=== PATIENT | female | born 1935 | race Caucasian/White ===

== ENCOUNTER 2017-08-19 16:00 | Inpatient (IN) | payer MEDICARE ==
[~2017-08-19] VITALS: Ht 165.1 cm; Wt 65.6 kg
[2017-08-19 16:45] VITALS: BP 137/56
[2017-08-19 17:05] LABS: BASOPHILS % (AUTO) 0.8 % (0.0-5.0); EOSINOPHILS % (AUTO) 1.7 % (0.0-8.0); LYMPHOCYTES % (AUTO) 29.8 % (21.0-51.0); MEAN CORPUSCULAR HEMOGLOBIN 33.4 pg (27.0-33.0); MEAN CORPUSCULAR HGB CONC 33.6 g/dL (32.0-36.0); MEAN CORPUSCULAR VOLUME 99.5 fL (79-99); MONOCYTES % (AUTO) 10.4 % (3.0-13.0); NEUTROPHILS % (AUTO) 57.3 % (40.0-77.0); PLATELET COUNT (AUTO) 311 K/uL (130-400); RED BLOOD CELL COUNT(AUTO) 3.92 MIL/uL (4.00-5.50); WHITE BLOOD COUNT (AUTO) 6.7 K/uL (4.8-10.8)
[2017-08-19 17:14] LABS: INR 0.95 (0.85-1.15); PARTIAL THROMBOPLASTIN TIME 27.3 SEC (26.3-35.5)
[2017-08-19] MEDS ORDERED: LEVO125T95 PO (17:41)
[2017-08-19] MEDS ORDERED: VITA1CAP85 PO (17:41)
[2017-08-19] MEDS ORDERED: VITAMIN D 3 PO (17:41)
[2017-08-19 17:52] LABS: APPEARANCE,URINE Clear (CLEAR); BILIRUBIN,URINE Negative (NEGATIVE); COLOR,URINE Yellow (YELLOW); GLUCOSE, URINE (UA) Negative (NEGATIVE); KETONES,URINE Negative (NEGATIVE); LEUKOCYTE ESTERASE ,URINE Small (NEGATIVE); NITRATE,URINE Negative (NEGATIVE); OCCULT BLOOD,URINE Negative (NEGATIVE); PROTEIN,URINE Negative (NEGATIVE)
[2017-08-19 17:54] LABS: CREATININE 1.1 mg/dL (0.5-1.5); POTASSIUM 3.9 mmol/L (3.5-5.1)
[2017-08-19 18:21] LABS: BACTERIA,URINE Rare /HPF (None Seen); RBC,URINE 0-1 /HPF (0-1); SQUAMOUS EPITHELIAL CELL,UR Rare /HPF (0-2)
[2017-08-22] VITALS (22 sets, daily range): BP systolic 91–155; BP diastolic 45–81
[2017-08-22] MEDS: CEFAZOLIN SODIUM 1 GM VIAL IVP SCH ×3 (06:00→16:33)
[2017-08-22] MEDS ORDERED: GENTAMICIN SULFATE 240 MG in SODIUM CHLORIDE 0.9% 100 ML IV SCH (07:30)
[2017-08-22] MEDS ORDERED: LACTATED RINGERS 1000ML 1,000 ML IV ONE (08:24)
[2017-08-22] MEDS ORDERED: KETOROLAC TROMETHAMINE 15MG/ML ONE (08:25)
[2017-08-22] MEDS ORDERED: ACETAMINOPHEN EXTRA STRENGTH 500 MG TABLET ONE (08:25)
[2017-08-22] MEDS ORDERED: CELECOXIB 200 MG CAP ONE (08:25)
[2017-08-22] MEDS ORDERED: OXYCODONE HCL 10 MG TAB.SR.12H PO ONE (08:26)
[2017-08-22] MEDS ORDERED: BUPIVACAINE/EPI/PF 0.25% 30ML VIAL IJ ONE (08:27)
[2017-08-22] MEDS ORDERED: CEFAZOLIN SODIUM 1 GM VIAL ONE (08:27)
[2017-08-22] MEDS ORDERED: TRANEXAMIC ACID 1000MG/10ML IV ONE ×2 (08:27→11:48)
[2017-08-22] MEDS ORDERED: MIDAZOLAM HCL 1 MG/ML 2ML VIAL ONE (10:17)
[2017-08-22] MEDS ORDERED: LIDOCAINE PF 2% 5ML ABBOJECT ONE (10:17)
[2017-08-22] MEDS ORDERED: PROPOFOL 10 MG/ML 20ML VIAL IV ONE ×2 (10:17→12:19)
[2017-08-22] MEDS ORDERED: DEXAMETHASONE SOD PHOSPHATE 10MG/ML 1ML VIAL ONE (10:17)
[2017-08-22] MEDS ORDERED: GLYCOPYRROLATE 0.2 MG/ML 5 ML VIAL ONE (10:17)
[2017-08-22] MEDS ORDERED: FENTANYL CITRATE PF 50 MCG/1 ML 2ML VIAL ONE (10:18)
[2017-08-22] MEDS ORDERED: LIDOCAINE HCL-MPF 1% 2ML VIAL IVP PRN (12:15)
[2017-08-22] MEDS ORDERED: OXYCODONE HCL 5 MG TAB PO PRN (12:15)
[2017-08-22] MEDS ORDERED: ACETAMINOPHEN 325 MG TAB PO PRN (12:15)
[2017-08-22] MEDS ORDERED: FERROUS FUMARATE 324 MG TABLET PO PRN (12:15)
[2017-08-22] MEDS ORDERED: POTASSIUM CHLORIDE 10% ELIXIR 20 MEQ/15 ML UDCUP PO PRN (12:15)
[2017-08-22] MEDS ORDERED: ONDANSETRON HCL 4 MG/2 ML VIAL IVP PRN (12:15)
[2017-08-22] MEDS ORDERED: DiphenhydrAMINE HCL 50 MG/ML VIAL IVP PRN (12:15)
[2017-08-22] MEDS: SODIUM CHLORIDE 0.9% 1000ML 1,000 ML IV SCH ×2 (12:15→23:29)
[2017-08-22] MEDS ORDERED: POTASSIUM CHLORIDE 20 MEQ ERTAB PO PRN (12:15)
[2017-08-22] MEDS ORDERED: TRAMADOL HCL 50 MG TABLET PO PRN (12:15)
[2017-08-22] MEDS ORDERED: CALCIUM CARBONATE 500 MG TABLET PO PRN (12:15)
[2017-08-22] MEDS ORDERED: TEMAZEPAM 15 MG CAPSULE PO PRN (12:15)
[2017-08-22] MEDS ORDERED: POTASSIUM CHLORIDE 20MEQ/100ML 100 ML IV PRN (12:15)
[2017-08-22] MEDS ORDERED: MEPERIDINE-PF 25 MG/ML SYG ONE (13:04)
[2017-08-22] MEDS ORDERED: MORPHINE SULFATE 4 MG/1ML SYG ONE (13:08)
[2017-08-22 13:54] LABS: APPEARANCE BODY FLUID CLOUDY (CLEAR); BODY FLUID WBC 698 /cu. mm.; COLOR,BODY FLUID RED (LT YELLOW); SPECIMENTYPE,BODY FLUID SYNOVIAL; TOTAL VOLUME,BODY FLUID 5 mL
[2017-08-22 13:55] LABS: BODY FLUID RBC 15875 /cu. mm.
[2017-08-22 14:16] LABS: BF LYMPHOCYTE 76 %; BF MONOCYTE 1 %
[2017-08-22] MEDS: KETOROLAC TROMETHAMINE 15MG/ML IV PRN ×2 (15:49→21:57)
[2017-08-22] MEDS: OXYCODONE HCL 5 MG TAB PO PRN (16:39)
[2017-08-22] MEDS ORDERED: CEFAZOLIN 2GM / 50 ML 50 ML IV SCH (17:15)
[2017-08-22] MEDS: CELECOXIB 200 MG CAP PO SCH (19:53)
[2017-08-22] MEDS: PREGABALIN 25 MG CAP PO SCH (19:53)
[2017-08-22] MEDS: FAMOTIDINE 20MG TAB 20 MG TAB PO SCH (19:53)
[2017-08-22] MEDS: ASPIRIN 325 MG TABLET PO SCH (19:53)
[2017-08-22] MEDS: LEVOTHYROXINE 125 MCG TABLET PO SCH (19:53)
[2017-08-23 00:35] VITALS: BP 133/68
[2017-08-23] MEDS: CEFAZOLIN SODIUM 1 GM VIAL IVP SCH (00:41)
[2017-08-23] MEDS: OXYCODONE HCL 5 MG TAB PO PRN ×2 (03:51→08:51)
[2017-08-23 04:31] VITALS: BP 141/67
[2017-08-23 05:31] LABS: HEMATOCRIT 32.8 % (36-48); MEAN CORPUSCULAR HEMOGLOBIN 33.9 pg (27.0-33.0); MEAN CORPUSCULAR HGB CONC 34.1 g/dL (32.0-36.0); MEAN CORPUSCULAR VOLUME 99.5 fL (79-99); PLATELET COUNT (AUTO) 248 K/uL (130-400); WHITE BLOOD COUNT (AUTO) 6.7 K/uL (4.8-10.8)
[2017-08-23 05:36] LABS: CREATININE 0.8 mg/dL (0.5-1.5); POTASSIUM 4.3 mmol/L (3.5-5.1)
[2017-08-23] MEDS: KETOROLAC TROMETHAMINE 15MG/ML IV PRN ×2 (07:05→17:41)
[2017-08-23 07:38] VITALS: BP 141/67
[2017-08-23] MEDS: SODIUM CHLORIDE 0.9% 1000ML 1,000 ML IV SCH (08:15)
[2017-08-23] MEDS: POLYETHYLENE GLYCOL 3350 17 GM POWD.PACK PO SCH (08:50)
[2017-08-23] MEDS: FAMOTIDINE 20MG TAB 20 MG TAB PO SCH ×2 (08:51→19:44)
[2017-08-23] MEDS: CELECOXIB 200 MG CAP PO SCH ×2 (08:51→19:43)
[2017-08-23] MEDS: VITAMIN B COMPLEX 1 CAPSULE PO SCH (08:51)
[2017-08-23] MEDS: ASPIRIN 325 MG TABLET PO SCH ×2 (08:51→19:43)
[2017-08-23] MEDS: PREGABALIN 25 MG CAP PO SCH ×2 (08:51→19:44)
[2017-08-23 10:51] VITALS: BP 124/64
[2017-08-23 16:32] VITALS: BP 145/65
[2017-08-23] MEDS ORDERED: ASPI-1012 PO (18:05)
[2017-08-23] MEDS ORDERED: HYDR-309 PO (18:05)
[2017-08-23 19:00] VITALS: BP 116/62
[2017-08-23] MEDS: LEVOTHYROXINE 125 MCG TABLET PO SCH (19:44)
[2017-08-23] MEDS: ACETAMINOPHEN EXTRA STRENGTH 500 MG TABLET PO PRN ×2 (19:44→20:58)
[2017-08-23] MEDS: ACETAMINOPHEN 325 MG TAB PO SCH (20:58)
[2017-08-24 00:16] VITALS: BP 105/55
[2017-08-24] MEDS: ACETAMINOPHEN 325 MG TAB PO SCH ×2 (03:11→09:59)
[2017-08-24 04:50] VITALS: BP 110/57
[2017-08-24 07:43] VITALS: BP 136/64
[2017-08-24] MEDS ORDERED: BISACODYL 10 MG SUPP.RECT RC ONE (09:19)
[2017-08-24] MEDS: ASPIRIN 325 MG TABLET PO SCH (09:36)
[2017-08-24] MEDS: VITAMIN B COMPLEX 1 CAPSULE PO SCH (09:36)
[2017-08-24] MEDS: FAMOTIDINE 20MG TAB 20 MG TAB PO SCH (09:36)
[2017-08-24] MEDS: PREGABALIN 25 MG CAP PO SCH (09:37)
[2017-08-24] MEDS: CELECOXIB 200 MG CAP PO SCH (09:37)
[2017-08-24] MEDS: POLYETHYLENE GLYCOL 3350 17 GM POWD.PACK PO SCH (09:44)
[2017-08-25] MEDS ORDERED: BISACODYL 10 MG SUPP.RECT RC PRN (12:15)
== END 2017-08-24 11:50 | disposition home health service (06) | DRG 470 ==
LOC: EDSTATUS 16:00 → DAHIP 08-22 07:28 → 4AH 08-22 14:05 → UNDODISIN 08-24 11:50
PROVIDERS: ADMIT Orthopaedic Surgery; ATTEND Orthopaedic Surgery
PROC: 0SRD0J9 Replacement of Left Knee Joint with Synthetic Substitute, Cemented, Open Approach (ICD-10-PCS; principal; 2017-08-22 10:15)
DX: M17.12 Unilateral primary osteoarthritis, left knee (principal); E03.9 Hypothyroidism, unspecified; G89.29 Other chronic pain; Z85.3 Personal history of malignant neoplasm of breast; Z90.11 Acquired absence of right breast and nipple
CPT/HCPCS: 36415; 80048; 81001; 85025; 85027; 85610; 85730; 87070; 87076; 87077; 87186; 87205; 88104; 88304; 88305; 88311; 89051; 96374; A4218; J0690; J1100; J1580; J1885; J2001; J2175; J2250; J2270; J2704; J3010; J3490; J7030; J7120